=== PATIENT | male | born 1930 | race Caucasian/White ===

== ENCOUNTER 2017-10-15 12:09 | Emergency (ER) | payer MEDICARE ==
[~2017-10-15] VITALS: Ht 177.8 cm; Wt 95.0 kg
[~2017-10-15 12:09] MED LIST: ASPI81 PO; BISO1TAB6 PO; CLOP75 PO; COLY4000S PO; IRBE150T51 PO; PRAV40TA PO; PRIL20TA2 PO; [UNRECOGNIZED DRUG - OTHER]
[2017-10-15 12:24] VITALS: BP 130/53; PULSE 59; RESP 18; TEMP 98.2
[2017-10-15 12:29] VITALS: O2SAT 97
[2017-10-15] MEDS ORDERED: LOSA100T2 PO (12:33)
[2017-10-15] MEDS ORDERED: PRAV80TA2 PO (12:33)
[2017-10-15] MEDS ORDERED: PRIL20TA2 (12:33)
[2017-10-15] MEDS ORDERED: ASPI-516 CHEW (12:33)
[2017-10-15] MEDS ORDERED: [UNRECOGNIZED DRUG - REMARK] (12:33)
--- NOTE | 2017-10-15 12:34 | PD ---
HPI Chief Complaint: Syncope/Near-Syncope Time Seen by Provider: 12:11 Travel History International Travel<30 days: No Contact w/Intl Traveler<30days: No Traveled to known affect area: No History of Present Illness HPI 87-year-old male that presents to the ED for evaluation of syncope. Patient was at religion when he stood up and felt like he was given a passout. Per patient she did not lose consciousness and remembers most of it. Per patient he was able to sit down and the people around him noted that he was looking very pale and not well. They called the ambulance. Per patient currently he has no symptoms. He denies any chest pain or shortness of breath. He does have a significant history of heart disease including having had stents and bypass. [place] patient [place] car that and he is following up with a vascular surgeon for this but at this time he was told no surgery necessary and they will observe it for now. patient denies any symptoms currently. Per patient he had the same symptoms 4 years ago secondary to not eating breakfast, family is concerned of same as patient only ate one donut today. No pain. No headache or any sympoms of any kind. Per [facility] vitals and glucose normal. PFSH Past Medical History Coronary Artery Disease: Yes Past Surgical History Coronary Artery Bypass Graft: Yes (1990) Coronary Stent: Yes (2005) Social History Alcohol Use: Yes Tobacco Use: No Allergies-Medications (Allergen,Severity, Reaction): Coded Allergies: No Known Allergies (Verified , 10/29/08) Reported Meds & Prescriptions Reported Meds & Active Scripts Active Cipro (Ciprofloxacin HCl) 500 Mg Tab 500 Mg PO BID 7 Days Cipro (Ciprofloxacin HCl) 500 Mg Tab 500 Mg PO BID 5 Days Reported [[id number]] Prilosec (Omeprazole Magnesium) 20 Mg Tab Losartan-Hydrochlorothiazide 100-25 Mg Tab 1 Tab PO DAILY Aspirin 81 Mg Chew 81 Mg CHEW DAILY Pravastatin 80 Mg Tab 80 Mg PO DAILY Prilosec Otc (Omeprazole Magnesium) 20 Mg Tab 20 Mg PO DAILY Review of Systems Except as stated in HPI: all other systems reviewed are Neg Physical Exam Narrative GENERAL: SKIN: Warm and dry. HEAD: Atraumatic. Normocephalic. EYES: Pupils equal and round. No scleral icterus. No injection or drainage. ENT: No nasal bleeding or discharge. Mucous membranes pink and moist. Tongue is midline. No uvula deviation. NECK: Trachea midline. No JVD. CARDIOVASCULAR: Regular rate and rhythm. No murmurs, S3, S4. RESPIRATORY: No accessory muscle use. Clear to auscultation. Breath sounds equal bilaterally. GASTROINTESTINAL: Abdomen soft, non-tender, nondistended. Hepatic and splenic margins not palpable. MUSCULOSKELETAL: Extremities without clubbing, cyanosis, or edema. No obvious deformities. full ROM of the upper and lower extremities. 2+ pulses bilaterally. NEUROLOGICAL: Awake and alert. No obvious cranial nerve deficits. Motor grossly within normal limits. Five out of 5 muscle strength in the arms and legs. Normal speech. PSYCHIATRIC: Appropriate mood and affect; insight and judgment normal. Data Data Last Documented VS Vital Signs Date Time Temp Pulse Resp B/P (MAP) Pulse Ox O2 Delivery O2 Flow Rate FiO2 10/15/17 13:02 57 18 114/55 (74) 60 18 107/60 (76) 10/15/17 12:30 95 Nasal Cannula 2.00 10/15/17 12:24 98.2 Orders Orders Electrocardiogram (10/15/17 12:18) Complete Blood Count With Diff (10/15/17 12:18) Basic Metabolic Panel (Bmp) (10/15/17 12:18) Ckmb (Isoenzyme) Profile (10/15/17 12:18) Troponin I (10/15/17 12:18) Prothrombin Time / Inr (Pt) (10/15/17 12:18) Act Partial Throm Time (Ptt) (10/15/17 12:18) Urinalysis - C+S If Indicated (10/15/17 12:18) Magnesium (Mg) (10/15/17 12:18) Thyroid Stimulating Hormone (10/15/17 12:18) Chest, Single Ap (10/15/17 12:18) Iv Access Insert/Monitor (10/15/17 12:18) Ecg Monitoring (10/15/17 12:18) Oximetry (10/15/17 12:18) Ct Brain W/O Iv Contrast(Rout) (10/15/17 ) Orthostatic Vital Signs (10/15/17 12:34) Urine Culture (10/15/17 13:20) Ed Discharge Order (10/15/17 14:25) Ciprofloxacin (Cipro) (10/15/17 14:30) Labs Laboratory Tests Test 10/15/17 12:36 10/15/17 13:20 White Blood Count 6.9 TH/MM3 Red Blood Count 4.20 MIL/MM3 Hemoglobin 13.5 GM/DL Hematocrit 39.8 % Mean Corpuscular Volume 94.8 FL Mean Corpuscular Hemoglobin 32.1 PG Mean Corpuscular Hemoglobin Concent 33.9 % Red Cell Distribution Width 14.6 % Platelet Count 271 TH/MM3 Mean Platelet Volume 7.4 FL Neutrophils (%) (Auto) 60.9 % Lymphocytes (%) (Auto) 22.9 % Monocytes (%) (Auto) 14.9 % Eosinophils (%) (Auto) 1.1 % Basophils (%) (Auto) 0.2 % Neutrophils # (Auto) 4.2 TH/MM3 Lymphocytes # (Auto) 1.6 TH/MM3 Monocytes # (Auto) 1.0 TH/MM3 Eosinophils # (Auto) 0.1 TH/MM3 Basophils # (Auto) 0.0 TH/MM3 CBC Comment DIFF FINAL Differential Comment Prothrombin Time 10.7 SEC Prothromb Time International Ratio 1.1 RATIO Activated Partial Thromboplast Time 23.3 SEC Blood Urea Nitrogen 36 MG/DL Creatinine 1.95 MG/DL Random Glucose 106 MG/DL Calcium Level 8.9 MG/DL Magnesium Level 2.2 MG/DL Sodium Level 136 MEQ/L Potassium Level 5.0 MEQ/L Chloride Level 103 MEQ/L Carbon Dioxide Level 27.4 MEQ/L Anion Gap 6 MEQ/L Estimat Glomerular Filtration Rate 33 ML/MIN Total Creatine Kinase 42 U/L Troponin I LESS THAN 0.02 NG/ML Thyroid Stimulating Hormone 3rd Gen 2.960 uIU/ML Urine Color YELLOW Urine Turbidity CLEAR Urine pH 5.5 Urine Specific [place] 1.016 Urine Protein NEG mg/dL Urine Glucose (UA) NEG mg/dL Urine Ketones NEG mg/dL Urine Occult Blood NEG Urine Nitrite NEG Urine Bilirubin NEG Urine Urobilinogen LESS THAN 2.0 MG/DL Urine Leukocyte Esterase LARGE Urine RBC 2 /hpf Urine WBC 15 /hpf Urine Squamous Epithelial Cells <1 /hpf Urine Transitional Epithelial Cells <1 /hpf Urine Mucus FEW /lpf Microscopic Urinalysis Comment CULTURE INDICATED MDM Medical Decision Making Medical Screen Exam Complete: Yes Emergency Medical Condition: Yes Medical Record Reviewed: Yes Interpretation(s) CBC & BMP Diagram 10/15/17 12:36 Calcium Level 8.9, Magnesium Level 2.2 Last Impressions Chest X-Ray 10/15/17 1218 Signed Impressions: Service Date/Time: Sunday, October 15, 2017 12:55 - CONCLUSION: Possible non-consolidative infiltrate in the medial left lower lobe. Deni Jay MD Head CT 10/15/17 0000 Signed Impressions: Service Date/Time: Sunday, October 15, 2017 13:40 - CONCLUSION: Normal examination. Troy Alatorre MD UA shows some leukerase esterase and bacteria Differential Diagnosis Syncope versus presyncope versus arrhythmia versus electrolyte abnormality Narrative Course 87-year-old male that presents to the ED for evaluation of presyncope. Labs and imaging done and showed no sign of acute disease other than possible consolidation vs infiltrate and possible UTI. Patient feeling well and able to ambulate. Case discussed with my attending Dr Swan who evaluated patient and agrees patient is safe for discharge. Patient made aware of results. Will start on cipro for UTI and possible respiratory infection. F/u with PCP. Counceled on reasons to come back. See ED if worst. Diagnosis Primary Impression: UTI (urinary tract infection) Qualified Codes: N30.00 - Acute cystitis without hematuria Additional Impression: Pre-syncope Patient Instructions: General Instructions Additional Instructions: Take medication as prescribed. Follow with PCP. See ED worsening symptoms. Drink plenty of fluids. Med/Other Pt SpecificInfo: Prescription(s) given Scripts Ciprofloxacin (Cipro) 500 Mg Tab 500 MG PO BID for Infection for 7 Days, #14 TAB 0 Refills Prov: Ramiro Swan MD 10/15/17 Ciprofloxacin (Cipro) 500 Mg Tab 500 MG PO BID for Infection for 5 Days, #10 TAB 0 Refills Prov: Ramiro Swan MD 10/15/17 Disposition: 01 DISCHARGE HOME Condition: Stable Trav Coffman Oct 15, 2017 12:33
[2017-10-15 12:52] LABS: AUTOMATED NEUTROPHIL # 4.2 TH/MM3 (1.8-7.7); BASOPHIL % 0.2 % (0.0-2.0); EOSINOPHIL # 0.1 TH/MM3 (0-0.4); EOSINOPHIL % 1.1 % (0.0-4.0); HEMATOCRIT 39.8 % (39.0-51.0); HEMOGLOBIN 13.5 GM/DL (13.0-17.0); LYMPH % 22.9 % (9.0-44.0); LYMPHOCYTE # 1.6 TH/MM3 (1.0-4.8); MEAN CELL VOLUME 94.8 FL (80.0-100.0); MEAN CORPUSCULAR HEMOGLOBIN 32.1 PG (27.0-34.0); MEAN CORPUSCULAR HGB CONC 33.9 % (32.0-36.0); MEAN PLATELET VOLUME 7.4 FL (7.0-11.0); MONO % 14.9 % (0.0-8.0); NEUT % 60.9 % (16.0-70.0); PLATELET COUNT 271 TH/MM3 (150-450); RED CELL DISTRIBUTION WIDTH 14.6 % (11.6-17.2); WHITE BLOOD COUNT 6.9 TH/MM3 (4.0-11.0)
[2017-10-15 13:00] LABS: INTERNATIONAL NORMALIZED RATIO 1.1 RATIO; PROTHROMBIN TIME - PATIENT 10.7 SEC (9.8-11.6)
[2017-10-15 13:02] VITALS: BP_SYST 107; BP_SYST 114; BP_DIAS 55; BP_DIAS 60; RESP 18
[2017-10-15 13:16] LABS: BICARBONATE 27.4 MEQ/L (21.0-32.0); BLOOD UREA NITROGEN 36 MG/DL (7-18); CALCIUM 8.9 MG/DL (8.5-10.1); CHLORIDE 103 MEQ/L (98-107); CREATININE 1.95 MG/DL (0.60-1.30); GLOMERULAR FILTRATION RATE 33 ML/MIN (>89); GLUCOSE,RANDOM 106 MG/DL (74-106); MAGNESIUM 2.2 MG/DL (1.5-2.5); SODIUM (NA) 136 MEQ/L (136-145)
--- NOTE | 2017-10-15 13:23 | RADRPT ---
EXAM DATE/TIME: 10/15/2017 12:55 [facility] COMPARISON: No previous studies available for comparison. INDICATIONS : Syncopal episode, Short of Breath MEDICAL HISTORY : Cardiovascular disease. SURGICAL HISTORY : CABG. ENCOUNTER: Initial ACUITY: 1 day PAIN SCORE: 0/10 LOCATION: chest FINDINGS: A single view of the chest demonstrates the lungs to be symmetrically aerated. Non-consolidative [place] in the retrocardiac region may represent an infiltrate. Both hemidiaphragms are well delineated . The cardiomediastinal contours are unremarkable. Prior median sternotomy with sternal wire suture s and mediastinal hemoclips. Right total shoulder arthroplasty with. CONCLUSION: Possible non-consolidative infiltrate in the medial left lower lobe. Deni Jay MD on October 15, 2017 at 13:21 Board Certified Radiologist. This report was verified electronically.
[2017-10-15 13:25] LABS: TROPONIN I LESS THAN 0.02 NG/ML (0.02-0.05)
--- NOTE | 2017-10-15 13:56 | RADRPT ---
EXAM DATE/TIME: 10/15/2017 13:40 [facility] COMPARISON: No previous studies available for comparison. INDICATIONS : Syncope. RADIATION DOSE: 41.57 CTDIvol (mGy) MEDICAL HISTORY : Cardiovascular disease. SURGICAL HISTORY : CABG ENCOUNTER: Initial ACUITY: 1 day PAIN SCALE: 0/10 LOCATION: cranial TECHNIQUE: Multiple contiguous axial images were obtained of the head. Using automated exposure control and adj ustment of the mA and/or kV according to patient size, radiation dose was kept as low as reasonably a chievable to obtain optimal diagnostic quality images. DICOM format image data is available electro nically for review and comparison. FINDINGS: CEREBRUM: The ventricles are normal for age. No evidence of midline shift, mass lesion, hemorrhage or acute in farction. No extra-axial fluid collections are seen. POSTERIOR FOSSA: The cerebellum and brainstem are intact. The 4th ventricle is midline. The cerebellopontine angle i s unremarkable. EXTRACRANIAL: The visualized portion of the orbits is intact. SKULL: The calvaria is intact. No evidence of skull fracture. CONCLUSION: Normal examination. Troy Alatorre MD on October 15, 2017 at 13:54 Board Certified Radiologist. This report was verified electronically.
[2017-10-15 13:58] LABS: BILIRUBIN, URINE NEG (NEG); BLOOD, URINE NEG (NEG); GLUCOSE,URINE NEG (NEG); KETONE, URINE NEG (NEG); MUCUS URINE FEW /lpf (OCC); NITRITE,URINE NEG (NEG); PH, URINE 5.5 (5.0-8.5); SQUAMOUS EPITHELIAL CELL URINE <1 /hpf (0-5); TRANSITIONAL EPI CELLS, URINE <1 /hpf; URINE COLOR YELLOW (YELLW/STRAW); URINE LEUKOCYTE ESTERASE LARGE (NEG)
[2017-10-15] MEDS ORDERED: CIPR-9 PO ×2 (14:19→14:26)
--- NOTE | 2017-10-15 14:19 | PD ---
Physical Exam Narrative GENERAL: SKIN: Warm and dry. HEAD: Atraumatic. Normocephalic. EYES: Pupils equal and round. No scleral icterus. No injection or drainage. ENT: No nasal bleeding or discharge. Mucous membranes pink and moist. NECK: Trachea midline. No JVD. CARDIOVASCULAR: Regular rate and rhythm. RESPIRATORY: No accessory muscle use. Clear to auscultation. Breath sounds equal bilaterally. GASTROINTESTINAL: Abdomen soft, non-tender, nondistended. MUSCULOSKELETAL: Extremities without clubbing, cyanosis, or edema. No obvious deformities. NEUROLOGICAL: Awake and alert. No obvious cranial nerve deficits. Motor grossly within normal limits. Five out of 5 muscle strength in the arms and legs. Normal speech. PSYCHIATRIC: Appropriate mood and affect; insight and judgment normal. Data Data Last Documented VS Vital Signs Date Time Temp Pulse Resp B/P (MAP) Pulse Ox O2 Delivery O2 Flow Rate FiO2 10/15/17 13:02 57 18 114/55 (74) 60 18 107/60 (76) 10/15/17 12:30 95 Nasal Cannula 2.00 10/15/17 12:24 98.2 Orders Orders Electrocardiogram (10/15/17 12:18) Complete Blood Count With Diff (10/15/17 12:18) Basic Metabolic Panel (Bmp) (10/15/17 12:18) Ckmb (Isoenzyme) Profile (10/15/17 12:18) Troponin I (10/15/17 12:18) Prothrombin Time / Inr (Pt) (10/15/17 12:18) Act Partial Throm Time (Ptt) (10/15/17 12:18) Urinalysis - C+S If Indicated (10/15/17 12:18) Magnesium (Mg) (10/15/17 12:18) Thyroid Stimulating Hormone (10/15/17 12:18) Chest, Single Ap (10/15/17 12:18) Iv Access Insert/Monitor (10/15/17 12:18) Ecg Monitoring (10/15/17 12:18) Oximetry (10/15/17 12:18) Ct Brain W/O Iv Contrast(Rout) (10/15/17 ) Orthostatic Vital Signs (10/15/17 12:34) Urine Culture (10/15/17 13:20) Labs Laboratory Tests Test 10/15/17 12:36 10/15/17 13:20 White Blood Count 6.9 TH/MM3 Red Blood Count 4.20 MIL/MM3 Hemoglobin 13.5 GM/DL Hematocrit 39.8 % Mean Corpuscular Volume 94.8 FL Mean Corpuscular Hemoglobin 32.1 PG Mean Corpuscular Hemoglobin Concent 33.9 % Red Cell Distribution Width 14.6 % Platelet Count 271 TH/MM3 Mean Platelet Volume 7.4 FL Neutrophils (%) (Auto) 60.9 % Lymphocytes (%) (Auto) 22.9 % Monocytes (%) (Auto) 14.9 % Eosinophils (%) (Auto) 1.1 % Basophils (%) (Auto) 0.2 % Neutrophils # (Auto) 4.2 TH/MM3 Lymphocytes # (Auto) 1.6 TH/MM3 Monocytes # (Auto) 1.0 TH/MM3 Eosinophils # (Auto) 0.1 TH/MM3 Basophils # (Auto) 0.0 TH/MM3 CBC Comment DIFF FINAL Differential Comment Prothrombin Time 10.7 SEC Prothromb Time International Ratio 1.1 RATIO Activated Partial Thromboplast Time 23.3 SEC Blood Urea Nitrogen 36 MG/DL Creatinine 1.95 MG/DL Random Glucose 106 MG/DL Calcium Level 8.9 MG/DL Magnesium Level 2.2 MG/DL Sodium Level 136 MEQ/L Potassium Level 5.0 MEQ/L Chloride Level 103 MEQ/L Carbon Dioxide Level 27.4 MEQ/L Anion Gap 6 MEQ/L Estimat Glomerular Filtration Rate 33 ML/MIN Total Creatine Kinase 42 U/L Troponin I LESS THAN 0.02 NG/ML Thyroid Stimulating Hormone 3rd Gen 2.960 uIU/ML Urine Color YELLOW Urine Turbidity CLEAR Urine pH 5.5 Urine Specific [place] 1.016 Urine Protein NEG mg/dL Urine Glucose (UA) NEG mg/dL Urine Ketones NEG mg/dL Urine Occult Blood NEG Urine Nitrite NEG Urine Bilirubin NEG Urine Urobilinogen LESS THAN 2.0 MG/DL Urine Leukocyte Esterase LARGE Urine RBC 2 /hpf Urine WBC 15 /hpf Urine Squamous Epithelial Cells <1 /hpf Urine Transitional Epithelial Cells <1 /hpf Urine Mucus FEW /lpf Microscopic Urinalysis Comment CULTURE INDICATED MDM Medical Record Reviewed: Yes Supervised Visit with SHAYLEE: Yes Narrative Course Urinalysis showed large leukocyte esterase with without any major epithelial cells culture is indicated and pending. Coagulation profile is within normal limits Chemistry profile showed some mild prerenal azotemia with a BUN of 36 and a creatinine of 1.95 and a GFR of 33 presently the patient does not have any elevated troponin TSH is within normal limits and calcium and magnesium are within normal limits as well as hIS electrolytes Chest x-ray shows a infiltrate in the medial left lower lobe Head CT is negative for any intracranial hemorrhage or brain mass. Diagnosis Primary Impression: Near syncope Additional Impression: Early left lung pna Patient Instructions: Community Acquired Pneumonia (DC), General Instructions, Near Syncope (ED) Scripts Ciprofloxacin (Cipro) 500 Mg Tab 500 MG PO BID for Infection for 5 Days, #10 TAB 0 Refills Prov: Ramiro Swan MD 10/15/17 Disposition: DISCHARGE HOME Condition: Stable Ramiro Swan MD Oct 15, 2017 14:19
[2017-10-15] MEDS ORDERED: methylPREDNISolone SOD SUCC 125 MG/2 ML VIAL IV PUSH ONE (14:30)
[2017-10-15] MEDS ORDERED: RESP: ALBUTEROL 2.5 MG/3 ML NEB (SCH) INH (14:30)
[2017-10-15] MEDS ORDERED: CIPROFLOXACIN 500 MG TAB PO ONE (14:30)
== END 2017-10-15 15:16 | disposition home or self-care (01) ==
LOC: NEPE 12:09
DX: N30.00 Acute cystitis without hematuria (principal); R55 Syncope and collapse; J18.9 Pneumonia, unspecified organism; I25.10 Atherosclerotic heart disease of native coronary artery without angina pectoris; Z79.899 Other long term (current) drug therapy
CPT/HCPCS: 70450; 71045; 80048; 81001; 82550; 83735; 84443; 84484; 85025; 85610; 85730; 87086; 99285